=== PATIENT | male | born 2005 | race Caucasian/White ===

== ENCOUNTER 2024-06-26 19:33 | Emergency (ER) | payer BC, SELFPAY ==
[2024-06-26 19:40] VITALS: BP 166/104
[2024-06-26 21:06] LABS: % Basophils 0.6 % (0-2); % Eosinophils 0.6 % (0-6); % Immature Granulocytes 0.2 % (0-0.5); % Lymphocytes 13.8 % (20.5-51.1); % Monocytes 7.8 % (1.7-9.3); Absolute Basophils 0.1 10^3/uL (0-0.2); Absolute Eosinophils 0.1 10^3/uL (0-0.7); Absolute Lymphocytes 1.2 10^3/uL (1.2-3.4); Absolute Monocytes 0.7 10^3/uL (0.1-0.6); Absolute Neutrophils 6.6 10^3/uL (1.4-6.5); Hematocrit 42.8 % (39.0-52.0); Hemoglobin 14.4 g/dL (13.0-18.0); Mean Corp Hgb Conc. 33.6 g/dL (33.0-37.0); Mean Corpuscular Hgb 31.2 pg (27.0-31.0); Mean Corpuscular Volume 92.6 fL (80.0-94.0); Mean Platelet Volume 9.8 fL (7.4-10.4); Nucleated Red Blood Cells % 0 % (-); Platelet Count 164 10^3/uL (130-400); Red Blood Cell Count 4.62 10^6/uL (4.70-6.10); Red Cell Dist. Width 11.9 % (11.5-14.5); White Blood Cell Count 8.6 10^3/uL (4.8-10.8)
[2024-06-26] MEDS: LIDOCAINE 4% PATCH 1 PATCH TOPICAL (21:13)
[2024-06-26 21:26] LABS: ALT (SGPT) 34 U/L (0-50); AST (SGOT) 28 U/L (17-59); Albumin 4.6 g/dl (3.5-5.0); Alkaline Phosphatase 42 U/L (38-126); Blood Urea Nitrogen 15 mg/dl (9-20); Calcium 9.1 mg/dl (8.4-10.2); Carbon Dioxide 32 mmol/L (22-30); Chloride 100 mmol/L (98-107); Glucose 106 mg/dl (70-99); Magnesium 2.2 mg/dl (1.6-2.3); Phosphorus 3.4 mg/dl (2.5-4.5); Potassium 4.2 mmol/L (3.5-5.1); Sodium 138 mmol/L (135-145); Total Bilirubin 0.6 mg/dl (0.2-1.3); Total Protein 6.8 g/dl (6.3-8.2); eGFR > 60.00
--- NOTE | 2024-06-26 22:04 | ED.GENMED ---
History of Present Illness
General
Chief Complaint: Suicidal Ideation
Source: patient and family
Exam Limitations: none
Time Seen by Provider: 06/26/24 19:50
Nursing documentation reviewed up to this point in time: agreed with
History of Present Illness
History of Present Illness:
Patient is a 19-year-old male who presents to the emergency department concerned about right upper back pain that seem to become worse after a flight to [place] and back couple weeks ago. Patient states it hurts to move and take a deep breath.
Patient denies any numbness or paresthesias. Patient admits to pain with bending over and lifting. Patient is also feeling very anxious and has a history of OCD. Patient has not seen a therapist or been treated for it. Patient does want to be
treated now. Patient had been hesitant because he was concerned that medication would affect his art. Patient did not have any direct trauma to his back. While giving me the history the patient did become tearful. Patient is not suicidal or
thinking of doing harm to himself or others.
Past History
Past History
ED Past Medical History: Asthma, GERD, Hypercholesterolemia and Other (Migraines, anxiety, OCD)
Social History
Tobacco: Smoker
Drug: Marijuana
Review of Systems
Review of Systems
All Other Systems: ROS reviewed and negative except as documented in HPI and ROS
Constitutional: Reports no symptoms
EENT: Reports no symptoms
Respiratory: Reports no symptoms
Cardiac: Reports no symptoms
ABD/GI: Reports no symptoms
: Reports no symptoms
Musculoskeletal: Reports back pain
Skin: Reports no symptoms
Neurological: Reports no symptoms
Hematologic/Lymphatic: Reports no symptoms
Psychiatric: Reports anxiety; Denies suicidal or hallucinations
Phy Exam
Physical Exam
Physical Exam:
Physical Exam
General: mild distress, alert and appropriate, well nourished, well hydrated
HENT: Normocephalic, supple with no lymphadenopathy, no thyromegaly
Eyes: Clear sclera, conjuctiva without injection
Heart: Regular rhythm and mildly tachycardic rate. No S3, S4. No murmur.
Lungs: No respiratory distress, no stridor, lung sounds clear and equal bilaterally, chest wall symmetrical and nontender
Abdomen: Soft, nontender, no organomegaly, no CVA tenderness, BS good
Neuro: Alert and oriented x 3, CN II - XII intact, no motor focality, no cerebellar dysfunction
Skin: no rash
Psychiatric: well kept. interactive and cooperative. Anxious
Extremities: No edema, cyanosis, tenderness
Musculoskeletal: Tenderness over the right rhomboid that increases with movement of the right upper extremity
Scores
Heart Failure Risk
Heart Failure Risk Score: Not Applicable
Heart Score for Chest Pain Patients
STEMI patient?: Not applicable
Withdrawal Assessment of Alcohol
Withdrawal Assessment Completed?: Not applicable
Course
Orders/Labs/Results
Orders:
Orders
06/26/24 20:02
Crisis Consult Urgent
Reason for Consult: SI
06/26/24 20:32
Lidocaine [Lidocaine 4% Patch] 1 patch TOPICAL NOW STA
Apply Lidocaine patch(s) to:: right upper back
CR Thoracic Spine 3 Views Urgent
Reason For Exam: upper tender
06/26/24 20:35
Crisis Consult Routine
Reason for Consult: anxiety ocd
06/26/24 20:48
Complete Blood Count/With Diff Urgent
Comprehensive Metabolic Panel Urgent
Magnesium Urgent
Phosphorus Urgent
Abnormal Lab Results
06/26/24
20:48
RBC 4.62 L 10^6/uL
(4.70-6.10)
MCH 31.2 H pg
(27.0-31.0)
Absolute Neuts (auto) 6.6 H 10^3/uL
(1.4-6.5)
Absolute Monos (auto) 0.7 H 10^3/uL
(0.1-0.6)
Neutrophils % 77.0 H %
(42.2-75.2)
Lymphocytes % 13.8 L %
(20.5-51.1)
Carbon Dioxide 32 H mmol/L
(22-30)
Glucose 106 H mg/dl
(70-99)
06/26/24 20:48
06/26/24 20:48
Vital Signs
Initial and Last Documented VS:
Initial Vital Signs
Temp Pulse Resp BP Pulse Ox
99.7 F 134 18 166/104 100
06/26/24 19:40 06/26/24 19:40 06/26/24 19:40 06/26/24 19:40 06/26/24 19:40
Last Documented Vital Signs
Temp Pulse Resp BP Pulse Ox
99.7 F 134 18 166/104 100
06/26/24 19:40 06/26/24 19:40 06/26/24 19:40 06/26/24 19:40 06/26/24 19:40
*Radiology
Radiology exam reviewed: radiology read reviewed
*Pulse Oximetry
Patient hypoxic: no
*EKG
Interpreted by ED Provider?: NA
*Android Framework Developer Interpretation
Rate: Android Framework Developer- N/A
*Critical Care Note
Total Time (30-74mins, 75-104mins- exclusive of procedures): Not Applicable
Update Note
Update Note:
Patient seen by crisis and given referrals. Will start the patient on Wellbutrin. Patient will be instructed to use heat or ice whichever feels better but will give him lidocaine patches. Patient also be instructed to use acetaminophen and or
ibuprofen.
ED Attending Note
-
Portions of this chart may have been created with voice recognition software.� Occasional wrong word or��sound alike� substitutions may have occurred due to the inherent limitations of voice recognition software.
Discharge Plan
Departure
Patient Disposition: Home (Routine Discharge)
Date of Disposition: 06/26/24
Time of Disposition: 22:41
Patient with high blood pressure during this ER visit?: Yes
Condition: Fair
Covid-19: Not Applicable
Discharge Problem:
Strain of right rhomboid muscle, Anxiety
Instructions: Muscle strain, Generalized Anxiety Disorder (DC), Upper back pain, BLOOD PRESSURE
Prescriptions:
New
bupropion HCl [Wellbutrin XL] 150 mg tablet extended release 24 hr
150 mg PO DAILY Qty: 30 1RF
lidocaine 5 % adhesive patch,medicated
1 patch topical DAILY Qty: 15 0RF
Referrals:
UNKNOWN,NO INTERVIEW [Family Provider] -
Activity Restrictions/Additional Instructions:
Follow-up with your family doctor in 5 to 7 days. No heavy lifting or straining. Make sure to take a deep breath 4-5 times a day. Acetaminophen 1000 mg or ibuprofen 400 mg every 6 hours for pain. You may use heat or cold whichever feels better.
Follow referrals by crisis. Any problems please return.
Interventions
Interventions:
*Risk Screen - Suicide Last Done: 06/26/24 19:40
*General Assessment Last Done: 06/26/24 19:40
*Neglect/Abuse Screening Last Done: 06/26/24 19:40
ED- Fall Risk Assessment Last Done: 06/26/24 19:40
*ED COVID-19 Vaccine History Last Done: 06/26/24 19:40
ED-Psychological Assessment Last Done: 06/26/24 20:03
Discharge Date and Time
Print Language: MOSOTHO
[2024-06-26] MEDS: WELLBUTRIN XL (24 hour extended release) 150 MG PO (22:53)
== END 2024-06-26 23:02 | disposition home or self-care (01) ==
LOC: EMR 19:33
PROVIDERS: EMERGENCY PHYSICIAN Emergency Medicine
DX: S29.012A Strain of muscle and tendon of back wall of thorax, initial encounter (principal); X58.XXXA Exposure to other specified factors, initial encounter; F41.9 Anxiety disorder, unspecified; R03.0 Elevated blood-pressure reading, without diagnosis of hypertension; F17.200 Nicotine dependence, unspecified, uncomplicated
CPT/HCPCS: 99284; 72072; 80053; 83735; 84100; 85025

== ENCOUNTER → 2024-08-24 12:02 | Outpatient (REF) | payer BC, SELFPAY | LOC: RAD 12:02 | PROVIDERS: ATTENDING PHYSICIAN Internal Medicine | DX: M54.50 Low back pain, unspecified (principal) | CPT/HCPCS: 72114 ==

== ENCOUNTER 2024-09-02 18:24 | Emergency (ER) | payer BC, SELFPAY ==
[2024-09-02 18:30] VITALS: BP 151/86
[2024-09-02] MEDS: TORADOL 15 MG IV (19:44)
--- NOTE | 2024-09-02 19:48 | ED.GENMED ---
History of Present Illness
General
Chief Complaint: Back Pain
Source: patient and family (Mother states his pain has gotten worse over the past 2 days)
Exam Limitations: none
Time Seen by Provider: 09/02/24 19:01
Nursing documentation reviewed up to this point in time: agreed with
History of Present Illness
History of Present Illness:
19-year-old male presents Emergency Department due to mid back pain that is worsened over the past several weeks. He also complains of generalized malaise and achiness. He has been doing physical therapy and taking cyclobenzaprine. Is not helping.
Past History
Past History
ED Past Medical History: Asthma, GERD, Hypercholesterolemia and Other (Migraines, anxiety, OCD)
Social History
Tobacco: Smoker
Drug: Marijuana
Review of Systems
Review of Systems
Allergies reviewed?: Yes
All Other Systems: Not applicable
Constitutional: Reports no symptoms
EENT: Reports no symptoms
Respiratory: Reports no symptoms
Cardiac: Reports no symptoms
ABD/GI: Reports no symptoms
: Reports no symptoms
Musculoskeletal: Reports muscle pain and back pain
Skin: Reports no symptoms
Neurological: Reports no symptoms
Endocrine: Reports no symptoms
Hematologic/Lymphatic: Reports no symptoms
Psychiatric: Reports no symptoms
Phy Exam
Physical Exam
Physical Exam:
Physical Exam
General: Appears uncomfortable
Neck: supple. no meningeal signs. normal posterior pharynx
Heart: s1/s2 regular rate and rhythm, no murmur. equal radial
pulses.
HEENT: Pupils equal round reactive to light, EOMI
Lungs: no acute respiratory distress. clear bilaterally
Abdomen: normal bowel sounds. not tender. no CVAT
Neuro: alert and oriented. no focal neurological deficits cranial nerves II through XII intact
Skin: no rash
Psychiatric: well kept. interactive and cooperative
Extremities: no edema. no calf tenderness. negative homans. good distal pulses
back: Limited range of motion due to pain
Course
Orders/Labs/Results
Orders:
Orders
09/02/24 19:42
IV Insert/Care/Rem.- Treatment PRN
Ketorolac [Toradol] 15 mg .ROUTE .STK-MED ONE
09/02/24 19:43
Ketorolac [Toradol] 15 mg IV NOW STA
09/02/24 19:45
CPK [Creatine Phosphokinase] Urgent
Complete Blood Count/With Diff Urgent
Comprehensive Metabolic Panel Urgent
Lipase Urgent
Comment: ADD O
09/02/24 20:50
Add On- LAB Urgent
Tests Added?: lipase
09/02/24 21:06
Urinalysis Reflex To Culture Urgent
Date Specimen was Collected: 09/02/24
Time Specimen was Collected: 21:04
Abnormal Lab Results
09/02/24
19:45
RBC 4.32 L 10^6/uL
(4.70-6.10)
Absolute Neuts (auto) 8.4 H 10^3/uL
(1.4-6.5)
Absolute Lymphs (auto) 0.9 L 10^3/uL
(1.2-3.4)
Neutrophils % 83.9 H %
(42.2-75.2)
Lymphocytes % 9.0 L %
(20.5-51.1)
Glucose 127 H mg/dl
(70-99)
Total Protein 6.2 L g/dl
(6.3-8.2)
09/02/24 19:45
09/02/24 19:45
Vital Signs
Initial and Last Documented VS:
Initial Vital Signs
Temp Pulse Resp BP Pulse Ox
98.9 F 137 16 151/86 98
09/02/24 18:30 09/02/24 18:30 09/02/24 18:30 09/02/24 18:30 09/02/24 18:30
Last Documented Vital Signs
Temp Pulse Resp BP Pulse Ox
98.9 F 95 18 147/82 99
09/02/24 18:30 09/02/24 21:05 09/02/24 21:05 09/02/24 21:05 09/02/24 21:05
MDM/Problems Addressed
Differential Diagnosis Includes:
Spinal fracture, viral syndrome, back strain, kidney stones, pancreatitis
MDM/Problems Addressed:
19-year-old male with mid to low back pain, no acute findings on x-ray, improved after Toradol. Stable for discharge.
Chronic conditions affecting care: Asthma and Other (Migraines)
*Radiology
Radiology exam reviewed: radiology read reviewed (Lumbar and thoracic spine x-rays no acute finding)
*Pulse Oximetry
Patient hypoxic: no
*EKG
Interpreted by ED Provider?: NA
*Associate Professor Computer Science Interpretation
Rate: Associate Professor Computer Science- N/A
*Critical Care Note
Total Time (30-74mins, 75-104mins- exclusive of procedures): Not Applicable
Data Reviewed
Further Testing Considered But Not Given:
MR not indicated
Patient Management
Social determinants of health affecting care: Living situation and Strong social support
Escalation/DeEscalation of care consider admission/obs:
Admit not indicated
ED Attending Note
-
Portions of this chart may have been created with voice recognition software.� Occasional wrong word or��sound alike� substitutions may have occurred due to the inherent limitations of voice recognition software.
Discharge Plan
Departure
Patient Disposition: Home (Routine Discharge)
Date of Disposition: 09/02/24
Time of Disposition: 22:11
Patient with high blood pressure during this ER visit?: Yes
Condition: Good
Discharge Problem:
Acute mid back pain
Instructions: Low Back Pain (DC), Upper Back Pain (DC), BLOOD PRESSURE
Prescriptions:
No Action
bupropion HCl [Wellbutrin XL] 150 mg tablet extended release 24 hr
150 mg PO DAILY Qty: 30 1RF
lidocaine 5 % adhesive patch,medicated
1 patch topical DAILY Qty: 15 0RF
Referrals:
Gildardo Marrero, DO [Non-Admitting Privileges] - Call in 1-3 days for appt
UNKNOWN - PT NOT,INTERVIEWE [Unknown Provider] -
Interventions
Interventions:
*Risk Screen - Suicide Last Done: 09/02/24 18:30
*Neglect/Abuse Screening Last Done: 09/02/24 18:30
ED- Fall Risk Assessment Last Done: 09/02/24 19:55
*ED COVID-19 Vaccine History Last Done: 09/02/24 19:55
ED-Musculoskeletal Assessment Last Done: 09/02/24 19:55
Discharge Date and Time
Print Language: UKRAINIAN
[2024-09-02 19:55] LABS: % Basophils 0.4 % (0-2); % Eosinophils 0.2 % (0-6); % Immature Granulocytes 0.3 % (0-0.5); % Monocytes 6.2 % (1.7-9.3); % Neutrophils 83.9 % (42.2-75.2); Absolute Lymphocytes 0.9 10^3/uL (1.2-3.4); Absolute Monocytes 0.6 10^3/uL (0.1-0.6); Absolute Neutrophils 8.4 10^3/uL (1.4-6.5); Hematocrit 40.4 % (39.0-52.0); Hemoglobin 13.4 g/dL (13.0-18.0); Mean Corp Hgb Conc. 33.2 g/dL (33.0-37.0); Mean Corpuscular Volume 93.5 fL (80.0-94.0); Mean Platelet Volume 9.2 fL (7.4-10.4); Nucleated Red Blood Cells % 0 % (-); Platelet Count 145 10^3/uL (130-400); Red Blood Cell Count 4.32 10^6/uL (4.70-6.10); Red Cell Dist. Width 11.9 % (11.5-14.5)
[2024-09-02 20:08] LABS: ALT (SGPT) 25 U/L (0-50); AST (SGOT) 21 U/L (17-59); Alkaline Phosphatase 45 U/L (38-126); Blood Urea Nitrogen 14 mg/dl (9-20); Calcium 8.8 mg/dl (8.4-10.2); Carbon Dioxide 28 mmol/L (22-30); Chloride 104 mmol/L (98-107); Creatine Phosphokinase 80 U/L (55-170); Glucose 127 mg/dl (70-99); Potassium 3.9 mmol/L (3.5-5.1); Sodium 137 mmol/L (135-145); Total Bilirubin 0.5 mg/dl (0.2-1.3); Total Protein 6.2 g/dl (6.3-8.2); eGFR > 60.00
[2024-09-02 21:05] VITALS: BP 147/82
[2024-09-02 21:11] LABS: Urine Albumin Negative (Neg - Trace); Urine Bilirubin Negative (Negative); Urine Character Clear (Clear); Urine Color Yellow; Urine Glucose Negative (Negative); Urine Ketone Negative (Negative); Urine Leukocyte Negative (Negative); Urine Nitrite Negative (Negative); Urine Occult Blood Negative (Negative); Urine Specific Gravity 1.015 (<1.030); Urine Urobilinogen Negative (Neg - 1+); Urine pH 6.5 (5.0-9.0)
[2024-09-02 21:20] LABS: Lipase 33 U/L (23-300)
[2024-09-03 00:24] VITALS: BP 154/88
== END 2024-09-03 02:18 | disposition home or self-care (01) ==
LOC: EMR 18:24
PROVIDERS: EMERGENCY PHYSICIAN Emergency Medicine; FAMILY PHYSICIAN Internal Medicine
DX: M54.6 Pain in thoracic spine (principal); R53.81 Other malaise; J45.909 Unspecified asthma, uncomplicated; K21.9 Gastro-esophageal reflux disease without esophagitis; E78.00 Pure hypercholesterolemia, unspecified; F41.9 Anxiety disorder, unspecified; F42.9 Obsessive-compulsive disorder, unspecified; F17.200 Nicotine dependence, unspecified, uncomplicated
CPT/HCPCS: 99284; 96374; 72128; 72131; 80053; 81003; 82550; 83690; 85025

== ENCOUNTER → 2024-09-10 13:04 | Outpatient (REF) | payer BC, SELFPAY | LOC: PAVMRI 13:04 | PROVIDERS: ATTENDING PHYSICIAN Internal Medicine | DX: M51.26 Other intervertebral disc displacement, lumbar region (principal); M54.50 Low back pain, unspecified; M51.362 Other intervertebral disc degeneration, lumbar region with discogenic back pain and lower extremity pain | CPT/HCPCS: 72148 ==